=== PATIENT | female | born 1985 | race Caucasian/White ===

== ENCOUNTER 2017-07-05 12:53 | Observation (INO) | payer MEDICAID, OTHER ==
[2017-07-05 14:08] LABS: APPEARANCE,URINE CLEAR; BILIRUBIN,URINE NEGATIVE (NEGATIVE); GLUCOSE, URINE NEGATIVE (NEGATIVE); KETONES,URINE NEGATIVE (NEGATIVE); LEUKOCYTE ESTERASE,URINE NEGATIVE (NEGATIVE); NITRITE,URINE NEGATIVE (NEGATIVE); PROTEIN,URINE NEGATIVE (NEGATIVE); URINE SPECIFIC GRAVITY 1.003; UROBILINOGEN,URINE NEGATIVE mg/dL (<2.0)
[2017-07-05 14:25] LABS: URINE BARBITURATES SCREEN NEGATIVE; URINE METHADONE SCREEN NEGATIVE; URINE OPIATES LOW NEGATIVE; URINE PHENCYCLIDINE SCREEN NEGATIVE
[2017-07-05] MEDS ORDERED: RINGERS SOLUTION,LACTATED 300 ML IV ONE (16:08)
[2017-07-05] MEDS ORDERED: NIFEDIPINE 10 MG CAPSULE PO ONE (16:25)
[2017-07-05] MEDS ORDERED: NIFEDIPINE 10 MG CAPSULE ONE (16:37)
[2017-07-05] MEDS: RINGERS SOLUTION,LACTATED 1,000 ML IV PRN ×2 (16:39→23:01)
[2017-07-05] MEDS ORDERED: TERBUTALINE SULFATE INJ/PF 1 MG/1 ML SDV ONE (17:28)
[2017-07-05] MEDS ORDERED: TERBUTALINE SULFATE INJ/PF 1 MG/1 ML SDV SUBCUT ONE (18:00)
[2017-07-05] MEDS ORDERED: PENICILLIN G-K 5 MILLION UNIT VIAL IV ONE (18:43)
[2017-07-05] MEDS ORDERED: PENICILLIN G-K 5 MILLION UNIT VIAL ONE ×2 (18:49→22:48)
[2017-07-05 19:51] LABS: ABSOLUTE LYMPHOCYTES (AUTO) 1.8 10^3/uL (0.5-4.7); ABSOLUTE MONOCYTES (AUTO) 0.5 10^3/uL (0.1-1.4); BASOPHILS % (AUTO) 0.2 % (0-2); EOSINOPHILS % (AUTO) 0.1 % (0-6); HEMATOCRIT 28.5 % (36.0-47.0); HEMOGLOBIN 9.7 g/dL (12.0-15.5); HGB HCT DIFFERENCE 0.6; LYMPHOCYTES % (AUTO) 14.8 % (13-45); MEAN CORPUSCULAR HEMOGLOBIN 29.7 pg (27.0-33.4); MEAN CORPUSCULAR VOLUME 87 fl (80-97); MONOCYTES % (AUTO) 4.4 % (3-13); RED BLOOD COUNT 3.27 10^6/uL (3.72-5.28); RED CELL DISTRIBUTION WIDTH 12.8 % (11.5-14.0); SEGMENTED NEUTROPHILS % (AUTO) 80.5 % (42-78); WHITE BLOOD COUNT 12.4 10^3/uL (4.0-10.5)
[2017-07-05] MEDS ORDERED: PENICILLIN G-K 5 MILLION UNIT VIAL IV SCH ×2 (23:00)
[2017-07-06] MEDS ORDERED: PENICILLIN G-K 5 MILLION UNIT VIAL ONE ×2 (02:36→07:15)
== END 2017-07-06 10:10 | disposition home or self-care (01) ==
LOC: LC 12:53 → EEVIPCON 18:47 → LR 18:47
PROVIDERS: ADMIT Obstetrics & Gynecology; ATTEND Obstetrics & Gynecology
PROC: 4A0HXCZ Measurement of Products of Conception, Cardiac Rate, External Approach (ICD-10-PCS; principal; 2017-07-06)
DX: O60.03 Preterm labor without delivery, third trimester (principal); Z3A.34 34 weeks gestation of pregnancy
CPT/HCPCS: 59025; 86900; 86901; 36415; 86850; 85025; 86592; 81001; 80307; G0378 ×2; G0379; J3490; J2540 ×2; J3105

== ENCOUNTER 2017-07-15 17:03 | Outpatient (CLI) | payer MEDICAID ==
--- NOTE | 2017-07-15 17:06 | Non Stress Test Report ---
Non Stress Test Datetime Report Generated by CPN: 07/15/2017 17:06 DEMOGRAPHIC EGA NST: 34.1 INDICATION Indication for Study: Ordered by Provider Indication for Study (NST) Other: pre term ctx, 23 hour obs MONITORING Monitor Explained: Monitor Explained; Test Explained; Patient Verbalized Understanding Time on Monitor: 07/06/2017 09:00 Time off Monitor: 07/06/2017 09:44 NST Duration: 44 NST INTERVENTIONS NST Interventions: PO Hydration Physician Notified NST: Dr. Neilsen BABY A: [id number] BABY A Movement : Present Contraction Frequency : none FHR Baseline : 140 Accelerations : 15X15 Decelerations : None Variability : Moderate 6-25bpm NST Review: Meets Criteria for Reactive NST NST Review and Verified By : Rufino Hanley RN NST Results: Reactive NST REPORT Report Trigger: Send Report
--- NOTE | 2017-07-15 17:40 | Non Stress Test Report ---
Non Stress Test Datetime Report Generated by CPN: 07/15/2017 17:40 DEMOGRAPHIC EGA NST: 35.3 INDICATION Indication for Study: Intrauterine Growth Restriction MONITORING Monitor Explained: Monitor Explained; Test Explained; Patient Verbalized Understanding Time on Monitor: 07/15/2017 17:16 Time off Monitor: 07/15/2017 17:36 NST Duration: 20 NST INTERVENTIONS NST Interventions: PO Hydration; Reposition Patient Physician Notified NST: Dr. Lima BABY A Movement : Present Contraction Frequency : X1 FHR Baseline : 145 Accelerations : 15X15 Decelerations : None Variability : Moderate 6-25bpm NST Review: Meets Criteria for Reactive NST NST Review and Verified By : Chela Silva RNC NST Results: Reactive NST REPORT Report Trigger: Send Report
== END 2017-07-15 17:42 | disposition home or self-care (01) ==
LOC: LC 17:03
PROVIDERS: ATTEND Obstetrics & Gynecology
PROC: 4A1HXCZ Monitoring of Products of Conception, Cardiac Rate, External Approach (ICD-10-PCS; principal; 2017-07-15)
DX: O36.5930 Maternal care for other known or suspected poor fetal growth, third trimester, not applicable or unspecified (principal); O47.03 False labor before 37 completed weeks of gestation, third trimester; Z3A.35 35 weeks gestation of pregnancy
CPT/HCPCS: 59025

== ENCOUNTER 2017-07-17 14:24 | Emergency (ER) | payer OTHER, MEDICAID ==
[2017-07-17 14:36] VITALS: BP 108/68
[2017-07-17] MEDS ORDERED: ACETAMINOPHEN 325 MG TABLET PO ONE (15:36)
[2017-07-17] MEDS ORDERED: AMOXICILLIN TR/POT CLAVULANATE 500-125 MG TAB PO ONE (15:36)
--- NOTE | 2017-07-17 15:36 | ER Document Report ---
ED Animal Bite - General Chief Complaint: Dog Bite Stated Complaint: POSSIBLE ANIMAL BITE, RIGHT LEG Time Seen by Provider: 07/17/17 15:19 TRAVEL OUTSIDE OF THE [place] 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 The interactive graphic designer invited her in and cleaned her wound Type of animal: Dog Appearance of animal: Appeared well Animal's immunizations: UTD Animal captured or known: Yes Animal control form completed: Yes Notes: Patients tetanus is UTD - Related Data Allergies/Adverse Reactions: erythromycin base [Erythromycin Base] Adverse Reaction (Unknown, Verified 14:36) VOMITING brompheniramine [From Drixoral] Adverse Reaction (Verified 07/17/17 14:36) VOMITING dexbrompheniramine [From Drixoral] Adverse Reaction (Verified 07/17/17 14:36) VOMITING pseudoephedrine [From Drixoral] Adverse Reaction (Verified 07/17/17 14:36) VOMITING Past Medical History - Social History Smoking Status: Never Smoker Family History: None Renal/ Medical History: Denies: Hx Peritoneal Dialysis Psychiatric Medical History: Reports: Hx Anxiety, Hx Depression Past Surgical History: Reports: Hx Tonsillectomy - Immunizations Immunizations up to date: Yes Hx Diphtheria, Pertussis, Tetanus Vaccination: Yes Review of Systems - Review of Systems Constitutional: No symptoms reported Skin: See HPI -: Yes All other systems reviewed and negative Physical Exam - Vital signs Vitals: Temp Pulse Resp BP Pulse Ox 97.4 F 83 16 108/68 100 07/17/17 14:35 07/17/17 14:35 07/17/17 14:35 07/17/17 14:35 07/17/17 14:35 - General General appearance: Appears well, Alert In distress: None - Cardiovascular Pulses: Normal: Dorsalis pedis Normal capillary refill: Yes - Extremities General lower extremity: Nontender, Normal color, Normal ROM, Normal strength, Normal temperature, Normal weight bearing. No: Edema Knee: Normal, Nontender Calf: Normal, Nontender, Abrasion - right lateral calf from dog bite, Ecchymosis - mild bruising. No: Instability, Laceration, Unable to bear weight Ankle: Normal, Nontender Foot: Normal, Nontender - Neurological Motor strength normal: LLE, RLE Additional motor exam normals: No: Weakness Sensory: Normal - Skin Skin Temperature: Warm Skin Moisture: Dry Skin Color: Normal Skin Turgor: Elastic Course - Re-evaluation Re-evalutation: 07/17/17 16:34 Patient is a 32-year-old female is hemodynamically stable, no acute distress afebrile. Wound was irrigated with saline and cleaned with Betadine at the bedside. Patient's tetanus is up-to-date. Declining rabies. Augmentin given. Patient to follow-up with primary care as needed and educated on wound care. Patient agrees with plan and is stable to return back to work. - Vital Signs Vital signs: Temp Pulse Resp BP Pulse Ox 97.4 F 83 16 108/68 100 07/17/17 14:35 07/17/17 14:35 07/17/17 14:35 07/17/17 14:35 07/17/17 14:35 Discharge - Discharge Clinical Impression: Dog bite Qualifiers: Encounter type: initial encounter Qualified Code(s): W54.0XXA - Bitten by dog, initial encounter Condition: Good Disposition: HOME, SELF-CARE Instructions: Animal Bites ([facility]), Antibiotic Ointment Protection ([facility]), Augmentin ([facility]) Prescriptions: Amox Tr/Potassium Clavulanate [Augmentin 875-125 Tablet] 1 tab PO BID 5 Days tablet Forms: Return to Work
== END 2017-07-17 16:01 | disposition home or self-care (01) ==
LOC: ER 14:24
DX: S81.851A Open bite, right lower leg, initial encounter (principal); W54.0XXA Bitten by dog, initial encounter; Y99.0 Civilian activity done for income or pay; Z88.3 Allergy status to other anti-infective agents
CPT/HCPCS: 99283